=== PATIENT | female | born 2000 | race Caucasian/White ===

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

== ENCOUNTER 2024-02-05 16:37 | Emergency (ER) | payer BC ==
[2024-02-05] MEDS: methylPREDNISolone Sodium Succinate 40 MG/1 ML SDV IVPUSH ONE (17:33)
[2024-02-05] MEDS: Sodium Chloride 0.9% 10 ML Syringe FLUSH PRN (17:33)
== END 2024-02-05 19:09 | disposition home or self-care (01) ==
LOC: JD.ED 16:37
DX: T78.40XA Allergy, unspecified, initial encounter (principal); Z79.899 Other long term (current) drug therapy; Z86.16 Personal history of COVID-19
CPT/HCPCS: 96374; 99284; J2919; J3490